=== PATIENT | female | born 1980 | race Caucasian/White ===

== ENCOUNTER → 2016-03-29 | Outpatient (CLI) | payer MEDICARE, OTHER, MEDICAID ==
[~2016-03-29] MED LIST: BUPIVACAINE HCL 0.5 % INJ/PF 30 ML SDV ONE; LIDOCAINE 2% INJ (20 MG/ML) 20 ML MDV ONE
== END ==
LOC: EDSTATUS 13:00 → WI 13:05
PROVIDERS: ATTEND Surgery
DX: N63 Unspecified lump in breast (principal); R92.8 Other abnormal and inconclusive findings on diagnostic imaging of breast
CPT/HCPCS: 76642; G0279; G0204; 77062; 77066; J3490

== ENCOUNTER → 2017-07-10 | Day surgery (SDC) | payer MEDICARE, OTHER, MEDICAID ==
[~2017-07-10] MED LIST changes: -BUPIVACAINE HCL 0.5 % INJ/PF 30 ML SDV ONE; +CHLOROPROCAINE HCL INJ/PF 3% (30 MG/1 ML) 20 ML VIAL INJ PRN; +LIDOCAINE 1%/EPINEPHRINE INJ 20 ML VIAL ONE; -LIDOCAINE 2% INJ (20 MG/ML) 20 ML MDV ONE
--- NOTE | 2017-07-10 12:37 | Discharge Summary ---
Discharge Summary (SDC) - Discharge Final Diagnosis: Asymmetric nodular density right breast Date of Surgery: 07/10/17 Discharge Date: 07/10/17 Condition: Good Treatment or Instructions: Patient to remove compression dressing in 24 hours; return to clinic [facility] in 1-2 weeks; take Motrin or Tylenol as needed pain. Resume preoperative medications diet activity Referrals: ABIODUN PASCUAL MD [Primary Care Provider] - Discharge Diet: As Tolerated Discharge Activity: Activity As Tolerated Home Care Assistance: None Needed Report the Following to Your Physician Immediately: Shortness of Breath, Increase in Pain, Fever over 101 Degrees, Unusual Bleeding
--- NOTE | 2017-07-10 12:43 | Operative Report ---
Operative Report DATE OF SURGERY: 07/10/17 PREOPERATIVE DIAGNOSIS: Asymmetric architecturally distorted area right breast POSTOPERATIVE DIAGNOSIS: Same OPERATION: 1. Stereotactically directed incisional myotomy core biopsies right breast. 2. Interpretation of intraoperative mammography. 3. Placement of clip marker SURGEON: ABIODUN PASCUAL ANESTHESIA: Local TISSUE REMOVED OR ALTERED: Multiple cores right breast COMPLICATIONS: None ESTIMATED BLOOD LOSS: 50 cc INTRAOPERATIVE FINDINGS: See below PROCEDURE: Patient was taken from the radiology holding area to the stereotactic room where the right breast was placed in compression. We approached the asymmetric area of architectural distortion of the right breast from a cc direction. The right breast was placed in compression, and the target tissue identified. Surgical plan surgical timeout conducted. The surface of the right breast was exposed, prepped with Betadine, and the skin anesthetized with Nesocane as the patient was a small mammotomy is made with 11 blade, mammotome advanced to the appropriate depth based on stereotactic mapping. Pre-and post fire films showed good alignment between the mammotome and the target asymmetric tissue. We completed biopsy in a circumferential fashion with the acquisition of approximately 10 cores. We inspected the cores on the back table and elected to obtain approximately 6 more to ensure adequate of intended tissue. We then obtained completion mammograms showing acquisition of intended tissue. Then placed a clip marker in the cavity. There was some bleeding during the procedure. Patient was placed out of compression, and direct compression applied to the biopsy site. Dressings applied. Patient tolerated procedure well. Discharge instructions provided to patient's mother. The patient and mother upon leaving the hospital went to [facility]. There the patient developed bleeding from the operative site. She was brought back to the radiology suite where she was placed in a procedure room. There was no active bleeding at this time. Bulky bloody dressings were removed, and we proceeded to close the biopsy site incision with a 3 oh [id number] Prolene suture. There was minimal hematoma. There was no active bleeding. A compression dressing was applied Discharge instructions were provided to the patient and patient's mother to remove present dressings in 24 hours.
--- NOTE | 2017-07-15 16:16 | WOMENS IMAGING REPORT ---
EXAM DESCRIPTION: STEREO BREAST BX; RIGHT DIG DX MAMMO NO CHG COMPLETED DATE/TIME: 07/10/2017 1:05 pm; 07/10/2017 1:07 pm REASON FOR STUDY: RIGHT BREAST MASS (N63.11); RIGHT BREAST STEREO BX; N63.11 N63.11 UNSPECIFIED LUM P IN THE RIGHT BREAST, UPPER OUTER SEBASTIAN R92.2 INCONCLUSIVE MAMMOGRAM COMPARISON: None. LIMITATIONS: None. PROCEDURE: Vacuum-assisted stereotactic-guided biopsy of the lesion in the right breast performed by Dr. Romero who also targeted the lesion. Using stereotactic guidance, a vacuum-assisted core biopsy of the targeted lesion was performed. A h ourglass clip was deployed at the biopsy site. Post procedure image reveals the clip at the biopsy s ite. TECHNIQUE: Images from the stereotactic unit acquired during the procedure. Specimen radiography performed. No. Post- procedure image acquired post-clip placement. Yes. Post procedure 2 view mammograms performed in the mammography suite. Yes. FINDINGS: SPECIMEN RADIOGRAPH:Not obtained. The lesion biopsied was a focal mass with no calcificat ions.. POST PROCEDURE MAMMOGRAMS FOR MARKER PLACEMENT: Yes. POST PROCEDURE MAMMOGRAM: Clip is in expected location. No significant hematoma. PATHOLOGY: Fibrocystic changes. Usual ductal hyperplasia. Focal papillomatosis and fibrosis. No ca rcinoma identified. CONCORDANT: Yes. The operating surgeon was notified of the findings. IMPRESSION: SUCCESSFUL STEREOTACTIC-GUIDED BIOPSY OF LESION IN THE RIGHT BREAST. BIOPSY RESULTS ARE CONCORDANT WITH IMAGING FINDINGS. FOLLOW-UP: PER SURGEON TECHNICAL DOCUMENTATION: JOB ID: [id number] [employer]- All Rights Reserved Reading location - IP/workstation name: [email or web address]
== END ==
LOC: RAD 09:50
PROVIDERS: ATTEND Surgery
DX: N63.11 Unspecified lump in the right breast, upper outer quadrant (principal); R92.2 Inconclusive mammogram; N60.91 Unspecified benign mammary dysplasia of right breast; N60.31 Fibrosclerosis of right breast; N60.41 Mammary duct ectasia of right breast; N61.0 Mastitis without abscess
CPT/HCPCS: 88342 ×2; 88341 ×2; 88305 ×2; 19081; J2400; J3490

== ENCOUNTER → 2017-12-10 | Outpatient (CLI) | payer MEDICARE, OTHER, MEDICAID ==
--- NOTE | 2017-12-10 11:14 | WOMENS IMAGING REPORT ---
EXAM DESCRIPTION: 3D DX MAMMO RIGHT UNILAT COMPLETED DATE/TIME: 12/10/2017 10:59 am REASON FOR STUDY: RIGHT BREAST MASS N63.12 UNSPECIFIED LUMP IN THE RIGHT BREAST, UPPER INNER SEBASTIAN COMPARISON: 07/10/2017, 03/29/2016, and 03/07/2016. TECHNIQUE: Standard craniocaudal and mediolateral oblique images of the breast recorded using digita l acquisition and breast tomosynthesis. Additional true lateral images acquired with tomosynthesis. LIMITATIONS: None. FINDINGS: BREAST: right MASSES: No suspicious masses. CALCIFICATIONS: No new or suspicious calcifications. ARCHITECTURAL DISTORTION: Focal area of architectural distortion in the superior breast associated wi th the biopsy clip. On the CC image this has a somewhat nodular appearance but on lateral and MLO im ages a discrete mass is not visualized. DEVELOPING DENSITY: None. ASYMMETRY: None noted. OTHER: No other significant findings. Read with the assistance of CAD. .[facility] - R2 Cenova Version 1.3 .[facility] - R2 Cenova Version 1.3 .[facility] - R2 Cenova Version 2.4 .[facility] - R2 Cenova Version 2.4 .[facility] - R2 Equine Intern Version 9.2 IMPRESSION: Biopsy changes in the superior breast with focal architectural distortion associated wit h the biopsy clip. BREAST DENSITY: b. There are scattered areas of fibroglandular density. BIRAD: 2 Benign findings. RECOMMENDATION: RECOMMENDED FOLLOW UP: Follow-up per the patient's surgeon. May resume annual scree camille mammography in 6 months. SPECIFIC INTERVENTION/IMAGING/CONSULTATION RECOMMENDED:No additional intervention/ imaging/consultati on needed at this time. COMMUNICATION:The imaging findings were not discussed with the patient. Her referring provider has be en notified of the findings. COMMENT: The patient has been notified of the results by letter per SA requirements. Additional no tification policies are in place for contacting patient with suspicious or incomplete findings. Quality ID #[id number]: The [employer] recommends an annual screening mammogram for women aged 40 years or over. This facility utilizes a reminder system to ensure that all patients receive reminder letters, and/or direct phone calls for appointments. This includes reminders for routine scr eening mammograms, diagnostic mammograms, or other Breast Imaging Interventions when appropriate. Th is patient will be placed in the appropriate reminder system. The [employer] (ACR) has developed recommendations for screening MRI of the breast s in certain patient populations, to be used in conjunction with mammography. Breast MRI surveillanc e may be appropriate for women with more than 20% lifetime risk of developing breast cancer as deter mined by genetic testing, significant family history of the disease, or history of mantle radiation f or Hodgkins Disease. ACR Practice Guidelines 2008. DBT Technology DBT is a type of tomographic mammography. With conventional mammography, overlapping breast tissue ma y make lesions difficult to detect, even with good compression. DBT uses an x-ray tube that rotates a round the breast, taking images at different angles. These images are then combined to create thin sl ices of the breast that the radiologist can view as a 3D reconstruction. The Roll20 unit can perform full-field digital mammograms (2D imaging); or DBT (3D imaging); or both, in a combination mode that quickly performs both the mammogram and the tomosynthesis scan while the breast is still compressed. PQRS 6045F: Fluoroscopic imaging is not utilized for breast tomosynthesis. TECHNICAL DOCUMENTATION: FINDING NUMBER: (1) ASSESSMENT: (1) JOB ID: [id number] [employer]- All Rights Reserved Reading location - IP/workstation name: [email or web address]
== END ==
LOC: RAD 10:33
PROVIDERS: ATTEND Surgery
DX: N63.12 Unspecified lump in the right breast, upper inner quadrant (principal)
CPT/HCPCS: 77065; G0279